=== PATIENT | female | born 1995 | race Caucasian/White ===

== ENCOUNTER → 2019-04-06 09:46 | Outpatient (BNVA) | payer MEDICAID, SELFPAY | PROVIDERS: Family Provider Nurse Practitioner Family; PCP Nurse Practitioner Family; Visit Provider Nurse Practitioner Family | DX: K52.9 Noninfective gastroenteritis and colitis, unspecified (principal); K92.1 Melena | CPT/HCPCS: 81003 ==

== ENCOUNTER → 2019-04-28 14:35 | Outpatient (BNVA) | payer MEDICAID, SELFPAY | PROVIDERS: Family Provider Nurse Practitioner Family; PCP Nurse Practitioner Family; Visit Provider Obstetrics & Gynecology | DX: N91.2 Amenorrhea, unspecified (principal) | CPT/HCPCS: 82670; 83001 ==

== ENCOUNTER 2019-08-08 09:13 | Outpatient (CLI) | payer MEDICAID, SELFPAY ==
--- NOTE | 2019-08-08 09:33 | MR_ITS ---
WS: [id number] MRI HEAD WITHOUT CONTRAST TECHNIQUE: Sagittal T1, T2 axial, T2 axial FLAIR, axial and coronal T1 images, axial susceptibility w eighted imaging, axial diffusion weighted images, and coronal T2 images were obtained. CLINICAL INFORMATION: CHRONIC HEADACHES COMPARISON: None. FINDINGS: No evidence of restricted diffusion to suggest acute ischemia. Ventricular system and basal cisterns are patent. Moderate patchy supratentorial white matter changes nonspecific in a patient this age but can be seen with hypertension, diabetes, migraine headaches, collagen vascular disease, and less lik clarisa demyelinating disease. Corpus callosum appears normal. No significant corpus callosal atrophy. Normal posterior fossa. Normal vascular flow voids at the skull base. No extra axial fluid collection s. No evidence of mass or mass effect. Paranasal sinuses and mastoid air cells well aerated. Normal o ptic chiasm and pituitary infundibulum. Temporal lobes and hippocampal formations are normal in appea gavi. No hemosiderin on susceptibly weighted images. MR/MR head wo con* [id number] IMPRESSION: 1. No evidence of restricted diffusion to suggest acute ischemia. 2. Moderate patchy supratentorial white matter changes nonspecific in a patien t this age but can be seen with hypertension, diabetes, migraine headaches, col lagen vascular disease, and less likely demyelinating disease. No significant p arenchymal volume loss. No infratentorial lesions. 3. Corpus callosum appears normal. No significant corpus callosal atrophy. 4. Paranasal sinuses and mastoid air cells well aerated. 5. No hemosiderin on the susceptibly weighted images.
== END 2019-08-08 09:14 | disposition home or self-care (01) ==
PROVIDERS: Family Provider Nurse Practitioner Family; PCP Nurse Practitioner Family; Visit Provider Psychiatry & Neurology Neurology
DX: G43.709 Chronic migraine without aura, not intractable, without status migrainosus (principal)
CPT/HCPCS: 70551

== ENCOUNTER → 2019-08-30 16:06 | Outpatient (BNVA) | payer MEDICAID, SELFPAY | PROVIDERS: Family Provider Nurse Practitioner Family; PCP Nurse Practitioner Family; Visit Provider Nurse Practitioner Family | DX: R53.83 Other fatigue (principal); N64.4 Mastodynia | CPT/HCPCS: 85025 ==

== ENCOUNTER → 2019-09-18 13:35 | Outpatient (BNVA) | payer MEDICAID, SELFPAY | PROVIDERS: Family Provider Nurse Practitioner Family; PCP Nurse Practitioner Family; Visit Provider Obstetrics & Gynecology | DX: E28.2 Polycystic ovarian syndrome (principal) | CPT/HCPCS: 80048 ==

== ENCOUNTER 2019-09-25 09:12 | Outpatient (CLI) | payer MEDICAID, SELFPAY ==
[2019-09-25 09:54] VITALS: BMI 24.1
--- NOTE | 2019-09-25 09:59 | ECG_ITS ---
[facility] Test Date: 2019-09-25 Pat Name: Gutierrez Rocha Department: Room: Gender: Female Signaler: : 1995 Requested By: Inez Mejia Order Number: [id number] Beaulieu MD: Inez Mejia M.D. Interpretive Statements NAME OF STUDY: TREADMILL STRESS TEST INDICATION: Chest Pain; Shortness of Breath Baseline blood pressure of 133/99 mm Hg, heart rate 89 beats per minute and oxygen saturation 98%. EKG showed normal sinus rhythm, normal axis with normal ST-Ts. The patient exercised for 10 minutes 6 seconds on a standard Raad protocol. Patient attained a maximum heart rate of 188 beats per minute(95 % of the maximum predicted heart rate) with a blood pressure at the peak exercise of 164/104 mm Hg and oxygen saturation 95%. The EKG at the peak exercise revealed sinus tachycardia with no significant ST-T wave changes. Patient did not have any significant arrhythmis with the exercise. Patient developed chest pressure during stage III of exercise along with intraprocedural shortness of breath that resolved by discharge. Study was terminated due to fatigue and exertional shortness of breath. During the recovery phase, there were no new changes. Blood pressure at the end of the recovery phase was 96/74 mm Hg with a heart rate of 102 beats per minute and oxygen saturation 98%. CONCLUSION: 1. Normal EKG response to treadmill exercise. 2. No exercise-induced chest pain or cardiac arrhythmia 3. Excellent exercise tolerance, attained a maximum of 13.5 METs. Maximum VO2 of 47.3 mL/kg/min. 4. Nathan treadmill score of 6 suggestive of low risk for cardiovascular events. 5. Baseline normal blood pressure with normal response to exercise. Electronically Signed On 09-25-2019 12:45:08 CDT by Inez Mejia M.D. [id number]
[2019-09-25 10:29] VITALS: BP 131/78; PULSE 99
== END 2019-09-25 09:13 | disposition home or self-care (01) ==
LOC: CDL 09:12
PROVIDERS: PCP Nurse Practitioner Family; Visit Provider Internal Medicine Cardiovascular Disease
DX: R06.02 Shortness of breath (principal)
CPT/HCPCS: 93017

== ENCOUNTER 2019-10-18 10:55 | Outpatient (CLI) | payer MEDICAID, SELFPAY ==
--- NOTE | 2019-10-18 11:00 | US_ITS ---
WS: [id number] ULTRASOUND LEFT BREAST HISTORY: left breast pain COMPARISON: None available. TECHNIQUE: 2-D and Doppler. At 4:00 at the areola margin is a hypoechoic well-circumscribed mass measuring 9 x 6 x 8 mm. No sign ificant increased vascularity. This is most consistent with a fibroadenoma. Solid mass at 4:00 is most consistent with benign fibroadenoma. Ultrasound-guided biopsy can confirm this if clinically thought necessary. US/US breast LT complete [id number] IMPRESSION: BI-RADS: 2-Benign FOLLOW-UP: See Report
== END 2019-10-18 10:56 | disposition home or self-care (01) ==
LOC: RAD 11:00
PROVIDERS: PCP Nurse Practitioner Family; Visit Provider Nurse Practitioner Family
DX: N64.4 Mastodynia (principal); N63.23 Unspecified lump in the left breast, lower outer quadrant
CPT/HCPCS: 76641

== ENCOUNTER 2019-11-02 11:56 | Outpatient (CLI) | payer MEDICAID, SELFPAY ==
--- NOTE | 2019-11-02 13:00 | US_ITS ---
WS: [id number] ULTRASOUND-GUIDED LEFT BREAST BIOPSY HISTORY: LEFT breast mass. COMPARISON: 10/18/2019 Procedure, risks and complications are explained to the patient. Medications are reviewed. Consent is obtained. The mass in the LEFT breast at 4:00 is localized with ultrasound. Skin is cleansed with ChloraPrep an d anesthetized with 1% buffered lidocaine. Small dermatome is made. Under sterile conditions mass is biopsied with a 14-gauge Achieve needle. Multiple core biopsies are performed. Material placed in for caron and sent to pathology for review. No complications encountered. Breast tissue marker (Bard ultrasound enhanced ribbon): Single. Patient left the radiology suite with no complications. Patient is instructed to return [place] [facility] any concerns. 1. Uncomplicated core needle biopsy LEFT breast mass at 4:00. US/[place] [id number] IMPRESSION: PATHOLOGY: Fat necrosis with histiocytes and chronic inflammation. No malignanc y. RECOMMENDATION: See report No additional follow-up recommended.
== END 2019-11-02 11:57 | disposition home or self-care (01) ==
PROVIDERS: PCP Nurse Practitioner Family; Visit Provider Surgery
DX: N63.23 Unspecified lump in the left breast, lower outer quadrant (principal); N64.1 Fat necrosis of breast
CPT/HCPCS: 19083; 88305

== ENCOUNTER 2019-12-25 14:42 | Emergency (ER) | payer MEDICAID, SELFPAY ==
[2019-12-25 14:49] VITALS: BP 126/84; PULSE 110; RESP 18; TEMP 36.5; O2SAT 100; BMI 23.8
--- NOTE | 2019-12-25 17:06 | ED_ITS ---
HPI - Wound/Laceration General: Chief Complaint: Wound/Laceration Stated Complaint: POSSIBLE CYST ON TAILBONE Time Seen by Provider: 12/25/19 15:03 History of Present Illness: HPI narrative: 24-year-old female with a history of pilonidal cyst returns with a swollen inflamed area at the superior aspect of the gluteal cleft overlying the sacrum. It is tender to touch it has not been draining. She has had it drained in the past but has never had a completely surgically excised. Onset (ago): day(s) Location: other (Gluteal cleft) Associated symptoms: Reports pain; Denies chills, fever(s), foreign body sensation, inability to move, nausea, numbness, syncope or vomiting Review of Systems Const: Denies: fever(s) or chills ENMT: Denies: throat pain, ear or mastoid pain, nasal discharge or nasal congestion Card: Denies: syncope Resp: Denies: dyspnea, productive cough or non-productive cough GI: Denies: nausea or vomiting : Denies: flank pain, difficulty voiding, dysuria, urinary frequency or urinary urgency Skin/Breast: Denies: rash or pruritus PFSH ED PFSH: Medical History Colitis Fibroadenoma of breast Seizure-like activity Surgical History History of cholecystectomy (09/23/16) Dr. Tran at [facility] Family History Father Diabetes Grandmother Diabetes maternal Hypertension maternal Stroke maternal great Grandfather Diabetes paternal Hypertension maternal Sister Diabetes Hypertension Mother Hypertension Hypercholesteremia Stroke Thyroid disease Bleeding disorder Family/Other Thyroid disease maternal aunt, maternal uncle Denies family history of Anesthesia complication Social History Smoking and tobacco status: never smoked Second hand smoke exposure: No Alcohol intake: never Substance/Drug Use: never Other details last substance use: Denies drug use. Housing: House Current occupational status: unemployed Female Reproductive History: Date of last menstrual period: 03/22/19 Para: 0 Spontaneous abortions: No Physical Exam Const: COMMON NORMALS: no acute distress GENERAL APPEARANCE: cooperative and comfortable ORIENTATION/CONSCIOUSNESS: Yes awake, Yes oriented to person, Yes oriented to place and Yes oriented to time HENMT: COMMON NORMALS: normocephalic, atraumatic and hearing grossly normal bilaterally HEAD & SCALP: normocephalic and atraumatic Eye: COMMON NORMALS: Equal, round and reactive pupils present, EOMs intact bilaterally, conjunctivae normal and no scleral icterus CONJUNCTIVA: Yes conjunctivae normal PUPIL: Yes Equal, round and reactive pupils present Neck/C-Spine: COMMON NORMALS: full ROM, no lymphadenopathy, supple and no JVD Lymph: LYMPHATIC: no lymphadenopathy noted and no lymphedema noted Resp: COMMON NORMALS: normal respiratory effort, No retractions, No use of accessory muscles and clear to auscultation bilaterally AUSCULTATION: clear to auscultation bilaterally Cardio: COMMON NORMALS: no JVD, regular rate, regular rhythm and No murmurs present (Cardio) RATE: regular rate RHYTHM: regular rhythm GI: COMMON NORMALS: Soft to palpation and No hepatosplenomegaly present AUSCULTATION: Yes normoactive bowel sounds PALPATION: Yes Soft to palpation, No Tenderness to palpation present (GI), No Guarding due to palpation present (GI) and Yes No hepatosplenomegaly present Extremity: COMMON NORMALS: normal to inspection, capillary refill normal, no clubbing, cyanosis or edema, no calf tenderness and no pedal edema Neuro: SENSORIUM/ORIENTATION: Yes oriented to person, Yes oriented to place and Yes oriented to time Skin: COMMON NORMALS: no rashes or lesions noted NARRATIVE SKIN EXAM: Fluctuant pilonidal cyst with scarring overlying no evidence of drainage there appears to be one area of pointing. GENERAL SKIN EXAM: no rashes or lesions noted Procedures Abscess I/D Site: other (Pilonidal cyst) Local Anesthetic: lidocaine 1% and with epi Amount of anesthesia used (mL): 3 Technique: incised with #11 blade Irrigation: No Packing used?: iodoform Course Vital Signs: Vital signs: Vital Signs Temperature 97.7 F 12/25/19 14:49 Pulse Rate 70 12/25/19 17:44 Respiratory Rate 15 12/25/19 17:44 Blood Pressure 130/80 12/25/19 17:44 Pulse Oximetry 98 12/25/19 17:44 MDM - Wound/Laceration MDM Narrative: Medical decision making narrative: Incision and it is done express large amount of very foul-smelling purulent materialIncision and drainage wound packed. Will start on antibiotics 3 change wound packing tomorrow return if his problems will make referral for surgery for definitive care Discharge Plan Discharge Patient Disposition: Home Clinical Impression: Infected pilonidal cyst Condition: Stable Prescriptions: New hydrocodone-acetaminophen 5-325 mg tablet 1 tab PO Q6H PRN (Reason: pain) Qty: 20 RF: 0 Augmentin 875-125 mg tablet 1 tab PO BID Qty: 20 RF: 0 No Action Lupron Depot 3.75 mg syringe kit 3.75 mg IM .Monthly Qty: 1 RF: 5 mupirocin 2 % ointment 1 applic TOPICAL BID Qty: 22 RF: 0 norethindrone ac-eth estradiol [Microgestin ()] 1.5-30 mg-mcg tablet 1 tab PO DAILY 21 Days Qty: 21 RF: 12 spironolactone 100 mg tablet 100 mg PO DAILY Qty: 30 RF: 2 Vitamin B-12 1,000 mcg Tablet 1,000 mcg PO DAILY RF: 0 uefxtiawda-oqesknjpxkbfl-bjyt 50-325-40 mg tablet 2 tab PO Q4H PRN (Reason: Headache) RF: 0 gabapentin 100 mg capsule 100 mg PO TID RF: 0 dicyclomine 10 mg capsule 10 mg PO QID PRN (Reason: Cramps) RF: 0 metoprolol tartrate 25 mg tablet 25 mg PO BID RF: 0 Adult Multivitamin Gummies 200 mcg Tablet,Chewable 400 mcg PO DAILY RF: 0 Discharge Orders: Discharge Order (Routine); Ordered 12/25/19 Ordered By: Juan Centeno Referrals: Nina Garcia FNP-C [Primary Care Provider] - Activity Restrictions/Additional Instructions: Follow-up with your primary care doctor tomorrow to have the packing changed. Case management will call to get you set up with the surgeon to have this definitively removed Discharge Date/Time: 12/25/19 17:45 Coding Level of Care Code ED Prize Coordinator for Floresg Fwd Exam Comprehensive
[2019-12-25 17:44] VITALS: BP 130/80; PULSE 70; RESP 15; O2SAT 98
--- NOTE | 2019-12-26 14:52 | DCPLANNER ---
retail manager in training had message to schedule a follow up appointment for patient with general surgery. retail manager in training called [facility], spoke with Lenore, onsite case manager gave clinic patients information. retail manager in training was told that patients information would be printed and reviewed. Clinic will call patient with appointment information.
--- NOTE | 2020-01-02 12:17 | DCPLANNER ---
Patient has a follow up appointment scheduled for Sunday, January 19, [address] at 11:[address] Tran. Clinic will call patient with appointment information.
== END 2019-12-25 17:45 | disposition home or self-care (01) ==
PROVIDERS: Emergency Provider Family Medicine; PCP Nurse Practitioner Family
DX: L05.01 Pilonidal cyst with abscess (principal); Z85.3 Personal history of malignant neoplasm of breast
CPT/HCPCS: 10080; 12345; 87070; 87205; 99282

== ENCOUNTER → 2020-04-06 13:22 | Outpatient (BNVA) | payer MEDICAID, SELFPAY | PROVIDERS: PCP Nurse Practitioner Family; Visit Provider Nurse Practitioner Family | DX: R53.83 Other fatigue (principal); R68.89 Other general symptoms and signs | CPT/HCPCS: 87400 ==

== ENCOUNTER → 2020-05-30 10:25 | Outpatient (BNVA) | payer MEDICAID, SELFPAY | PROVIDERS: PCP Nurse Practitioner Family; Visit Provider Obstetrics & Gynecology | DX: R10.2 Pelvic and perineal pain (principal) | CPT/HCPCS: 81025 ==

== ENCOUNTER → 2020-06-14 11:20 | Outpatient (BNVA) | payer MEDICAID, SELFPAY | PROVIDERS: PCP Nurse Practitioner Family; Visit Provider Obstetrics & Gynecology | DX: Z12.4 Encounter for screening for malignant neoplasm of cervix (principal); N89.8 Other specified noninflammatory disorders of vagina | CPT/HCPCS: 87491; 87591; 88175 ==

== ENCOUNTER → 2020-07-08 09:53 | Outpatient (BNVA) | payer MEDICAID, SELFPAY | PROVIDERS: PCP Nurse Practitioner Family; Visit Provider Nurse Practitioner Family | DX: M79.604 Pain in right leg (principal); M79.605 Pain in left leg; R31.0 Gross hematuria | CPT/HCPCS: 80053; 81000; 82306; 82607; 84443; 85025; 85651; 86140; 86431 ==

== ENCOUNTER → 2020-07-10 11:15 | Outpatient (BNVA) | payer MEDICAID, SELFPAY | PROVIDERS: PCP Nurse Practitioner Family; Visit Provider Nurse Practitioner Family | DX: E03.9 Hypothyroidism, unspecified (principal); E55.9 Vitamin D deficiency, unspecified | CPT/HCPCS: 84439; 84481 ==

== ENCOUNTER → 2020-07-16 12:09 | Outpatient (BNVA) | payer MEDICAID, SELFPAY | PROVIDERS: PCP Nurse Practitioner Family; Visit Provider Obstetrics & Gynecology | DX: E28.2 Polycystic ovarian syndrome (principal) | CPT/HCPCS: 81025 ==

== ENCOUNTER 2020-08-08 08:35 | Outpatient (CLI) | payer MEDICAID, SELFPAY ==
--- NOTE | 2020-08-08 08:45 | US_ITS ---
WS: [id number] THYROID ULTRASOUND HISTORY: E03.9 - Hypothyroidism, unspecified COMPARISON: None available. Right lobe: 1.8 cm x 1.6 cm x 5.1 cm (w x ap x l). Volume: 7.5 cm3. Slightly prominent thyroid gland. Coarsened echotexture with no discrete nodules. There is mild incre ased vascularity. Left lobe: 1.9 cm x 1.6 cm x 4.7 cm (w x ap x l). Volume: 7.6 cm3. Mildly enlarged gland with coarse echotexture. No nodules. Increased vascularity. Isthmus: 0.3 cm. US/US thyroid [id number] IMPRESSION: 1. No focal thyroid nodules. 2. Consider mild Graves' disease as a possible etiology based upon the mild in creased vascularity.
== END 2020-08-08 08:36 | disposition home or self-care (01) ==
LOC: RAD 08:40
PROVIDERS: PCP Nurse Practitioner Family; Visit Provider Nurse Practitioner Family
DX: E03.9 Hypothyroidism, unspecified (principal)
CPT/HCPCS: 76536

== ENCOUNTER → 2020-08-20 11:40 | Outpatient (BNVA) | payer MEDICAID, SELFPAY | PROVIDERS: PCP Nurse Practitioner Family; Visit Provider Nurse Practitioner Family | DX: E03.9 Hypothyroidism, unspecified (principal) | CPT/HCPCS: 84439; 84481 ==

== ENCOUNTER 2020-09-03 07:40 | Outpatient (CLI) | payer MEDICAID, SELFPAY ==
--- NOTE | 2020-09-03 08:00 | US_ITS ---
WS: [id number] ULTRASOUND BREAST RIGHT TECHNIQUE: Ultrasound right breast focused area of concern. CLINICAL INFORMATION: N63.15 - Unspecified lump in the right breast, overlappin... COMPARISON: None. FINDINGS: Ultrasound right breast at the 3:00 position 1 cm from the nipple in the area of patient concern. Den se underlying breast parenchyma. No cystic or solid lesions. No lesions to target for biopsy. Finding s are benign. US/US breast RT limited* [id number] IMPRESSION: No suspicious findings. BI-RADS 2 benign Recommend annual screening mammography age 40.
== END 2020-09-03 07:41 | disposition home or self-care (01) ==
LOC: RAD 07:41
PROVIDERS: PCP Nurse Practitioner Family; Visit Provider Nurse Practitioner Family
DX: N63.15 Unspecified lump in the right breast, overlapping quadrants (principal)
CPT/HCPCS: 76642

== ENCOUNTER → 2020-09-05 12:54 | Outpatient (BNVA) | payer MEDICAID, SELFPAY | PROVIDERS: PCP Nurse Practitioner Family; Visit Provider Surgery | DX: L05.01 Pilonidal cyst with abscess (principal); Z20.822 Contact with and (suspected) exposure to COVID-19 | CPT/HCPCS: 87635 ==

== ENCOUNTER → 2020-09-19 12:16 | Outpatient (BNVA) | payer MEDICAID, SELFPAY | PROVIDERS: PCP Nurse Practitioner Family; Visit Provider Surgery | DX: L05.01 Pilonidal cyst with abscess (principal); Z20.822 Contact with and (suspected) exposure to COVID-19 | CPT/HCPCS: 87635 ==

== ENCOUNTER 2020-09-25 11:34 | Day surgery (SDC) | payer MEDICAID, SELFPAY ==
[2020-09-24 14:07] VITALS: BMI 26.2
[2020-09-25] VITALS (8 sets, daily range): BP systolic 114–125; BP diastolic 80–94; PULSE 64–78; RESP 14–20; TEMP 36.2–36.7; O2SAT 96–99
--- NOTE | 2020-09-25 11:42 | P.HP_ITS ---
Same Day Surgery H&P Indication for Procedure/HPI DATE OF PROCEDURE: September 25, 2020 CHIEF COMPLAINT/INDICATIONFOR SURGICAL PROCEDURE: pilonidal cystectomy PREOP DIAGNOSIS: pilonidal abscess PLANNED PROCEDRUE: Operation Date: 09/25/20 14:30 Proposed Procedures p Pilonidal Cystectomy 06862 L05.01(Bilateral) - Naga Tran MD Medications/Allergies* Home Medications Medication Instructions Recorded Confirmed Type lmgfeozrgf-ggmljugontnhg-sbyx 2 tab PO Q4H PRN 12/25/19 09/24/20 History cyanocobalamin (vitamin B-12) 1,000 mcg PO DAILY 12/25/19 09/24/20 History [Vitamin B-12] dicyclomine 10 mg PO QID PRN 12/25/19 09/24/20 History gabapentin 100 mg PO TID 12/25/19 09/24/20 History multivit with min-folic acid 400 mcg PO DAILY 12/25/19 09/24/20 History [Adult Multivitamin Gummies] Allergies/Adverse Reactions Allergy/AdvReac Type Severity Reaction Status Date / Time No Known Allergies Allergy Verified 09/24/20 14:00 Pertinent History/Comorbid Conditions* Medical History (Updated 07/29/20 @ 10:08 by Naga Tran MD) Colitis Fibroadenoma of breast Seizure-like activity Surgical History (Updated 07/29/20 @ 10:08 by Naga Tran MD) History of cholecystectomy (09/23/16) Dr. Tran at [facility] History of colonoscopy 2020 Family History (Updated 10/24/19 @ 13:50 by Clarice Sanches LPN) Diabetes Father Grandmother maternal Grandfather paternal Sister Hypercholesteremia Mother Bleeding disorder Mother Hypertension Grandmother maternal Grandfather maternal Sister Mother Thyroid disease Mother Family/Other maternal aunt, maternal uncle Stroke Grandmother maternal great Mother Denies family history of Anesthesia complication Social History Smoking and tobacco status: never smoked Second hand smoke exposure: No Alcohol intake: never Lives independently: Yes Household members: family Housing: House Marital status: Single service: No Current occupational status: unemployed History of recent travel: No Current gender identity: Female Pertinent Exam Findings alert, oriented x 3 and regular rate & rhythm Recommendations Surgery/Procedure today Coding Level of Care Code Acute 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
[2020-09-25 11:53] LABS: OR HCG Qualitative Urine Negative (Negative)
[2020-09-25] MEDS: sodium chloride 0.9% 1,000 ML 30 ML IV (12:14)
--- NOTE | 2020-09-25 12:46 | ANES.PREANE2 ---
Pre-Anesthetic Assessment Pre-Anesthetic Assessment: Height/Weight: Height 1.7 m Weight 75.75 kg Temp Pulse Resp BP Pulse Ox 97.8 F 78 16 122/89 98 09/25/20 11:54 09/25/20 11:54 09/25/20 11:54 09/25/20 11:54 09/25/20 11:54 Preop Diagnosis: pilonidal abscess Proposed Procedure: Operation Date: 09/25/20 14:30 Proposed Procedures p Pilonidal Cystectomy 68258 L05.01(Bilateral) - Naga Tran MD Was Beta Sirisha taken within 24 hours: Yes Was Clonidine taken within 24 hours: N/A Last intake: Intake Last Liquid Date 09/25/20 Last Liquid Time 08:30 Last Solid Date 09/24/20 Last Solid Time 22:30 Social: Social History: No alcohol and No tobacco Exam: Pre-Anes Outpt Exam: alert, oriented x 3, clear to auscultation bilaterally and regular rate & rhythm Airway: Submandibular: WNL Cervical ROM: WNL MP: 2 Dentition: Full CV/HEM: CV/HEM: HTN Metabolic: Metabolic: Thyroid Anesthetic Plan: ASA status: 2 Anesthesia: General Risk of > 500 ml blood loss (7ml/kg in children): No Meds/Allergies Current Medications: Current Medications Generic Name Dose Route Start Last Admin Trade Name Freq PRN Reason Stop Dose Admin Sodium Chloride 1,000 mls @ 30 ml s/hr 09/25/20 11:45 09/25/20 12:14 Sodium Chloride 0.9% IV 09/26/20 11:44 30 mls/hr .Q24H CARROLL Administration PFSH Anesthesia PFSH: Medical History Colitis Fibroadenoma of breast Seizure-like activity Surgical History History of cholecystectomy (09/23/16) Dr. Tran at [facility] History of colonoscopy 2020 Family History Father Diabetes Grandmother Diabetes maternal Hypertension maternal Stroke maternal great Grandfather Diabetes paternal Hypertension maternal Sister Diabetes Hypertension Mother Hypertension Hypercholesteremia Stroke Thyroid disease Bleeding disorder Family/Other Thyroid disease maternal aunt, maternal uncle Denies family history of Anesthesia complication Social History Smoking and tobacco status: never smoked Second hand smoke exposure: No Alcohol intake: never Lives independently: Yes Household members: family Housing: House Marital status: Single service: No Current occupational status: unemployed History of recent travel: No Current gender identity: Female Female Reproductive History: Date of last menstrual period: 09/25/19 Para: 0 Spontaneous abortions: No Data Anesthesia Other Labs: Laboratory Results - last 48 hr 09/25/20 11:37 Urine HCG, Qual Negative Cardiac Studies: No Data to Display
[2020-09-25] MEDS: neomycin-poly-bacitracin oint 28 gm 1 APPLIC TOPICAL (13:35)
--- NOTE | 2020-09-25 15:08 | P.OP_ITS ---
Operative Report Date of procedure: September 25, 2020 Pre-op Diagnosis: pilonidal abscess with sinuses Post-op Diagnosis: Multiple pilonidal sinuses Procedure Done: Pilonidal cystectomy Intermediate closure of wound measuring 6 x 2 cm Specimens removed/disposition: Skin subcutaneous tissue containing pilonidal sinuses Surgeon: Naga Tran Anesthesia: MAC Condition: stable Disposition: PACU Procedure: The patient was taken to the operating room and intubated under general anesthesia after IV antibiotic had been administered and she was placed in a prone position. The gluteal cleft was prepped and draped in a sterile m tamie. Using a lacrimal probe the multiple pilonidal sinuses were probed to identify the extent of the disease. Using a 15 blade an elliptical 6 x 2 cm incision was made, subcutaneous tissues divided using electrocautery down to the fascia incorporating all the sinus tracts as well as microabscesses. The specimen was sent to pathology. The wound was irrigated with saline, hemostasis ensured and subcutaneous flaps were raised bilaterally using electrocautery. The subcutaneous tissues were approximated with underlying fascia using interrupted 3-0 Vicryl sutures. The defect was closed in layers using interrupted 3-0 Vicryl sutures. The skin was closed using vertical mattress 2-0 Prolene suture. Antibiotic cream and sterile dressings were used to cover the incision. The patient was extubated and transferred to recovery room in stable condition.
--- NOTE | 2020-09-25 15:58 | ANE.PACU2 ---
Inpatient post-anesthesia follow up: Airway intact: Yes Vital signs: Temperature 98.1 F Pulse Rate 70 Respiratory Rate 14 Blood Pressure 114/80 Pulse Oximetry 98 Oxygen Delivery Me thod Room Air Oxygen Flow Rate Fraction of Inspir ed Oxygen Hydration adequate: Yes Nausea and vomiting: No Pain level: 1 Mental status: Baseline
== END 2020-09-25 15:40 | disposition home or self-care (01) ==
PROVIDERS: Anesthesiology; PCP Nurse Practitioner Family; Visit Provider Surgery
PROC: (CPT 11772; principal; 2020-09-25 14:30)
DX: L05.01 Pilonidal cyst with abscess (principal); I10 Essential (primary) hypertension; Z82.49 Family history of ischemic heart disease and other diseases of the circulatory system; Z83.3 Family history of diabetes mellitus
CPT/HCPCS: 11772; 81025; 84703; 88304; 96365; J0690; J1100; J1885; J2405; J2704; J2710; J3010; J3490; J7030

== ENCOUNTER 2020-10-14 14:29 | Observation (INO) | payer MEDICAID, SELFPAY ==
[2020-10-14 14:33] VITALS: BP 118/83; PULSE 106; RESP 18; TEMP 37.1; O2SAT 104; BMI 26.4
[2020-10-14 19:59] LABS: Basophils % 0.7 %; Eosinophils # 0.1 10^3/uL (0.0-0.8); Eosinophils % 1.6 %; Hematocrit 40.8 % (37.0-47.0); Hemoglobin 13.2 g/dL (11.5-15.3); Lymphocytes # 2.2 10^3/uL (0.8-4.8); Lymphocytes % 36.5 %; Mean Corpuscular HGB Conc 32.4 g/dL (30.0-36.0); Mean Corpuscular Hemoglobin 28.9 pg (28.0-34.0); Mean Corpuscular Volume 89.5 fL (81-99); Mean Platelet Volume 8.8 fL (7.4-10.4); Monocytes # 0.7 10^3/uL (0.2-0.9); Monocytes % 10.9 %; Neutrophils # 3.04 10^3/uL (1.8-7.7); Nucleated Red Blood Cells % 0 %; Platelet Count 306 10^3/cmm (130-400); Red Blood Count 4.56 10^6/uL (4.1-5.3); Red Cell Distribution Width 11.9 % (12.1-15.1); White Blood Count 6.1 10^3/uL (4.0-10.0)
[2020-10-14 20:13] LABS: Alanine Aminotransferase 22 U/L (0-33); Albumin Level 4.2 g/dL (3.5-5.2); Alkaline Phosphatase 101 IU/L (35-105); Aspartate Amino Transferase 24 U/L (0-32); Blood Urea Nitrogen 11 mg/dL (6-20); Calcium 9.3 mg/dL (8.5-10.5); Carbon Dioxide 24 mmol/L (22-29); Chloride 101 mmol/L (98-107); Globulin 3.6 g/dL (1.3-4.6); Glomerular Filtration Rate 121.8 mL/min (90-130); Glucose 86 mg/dL (65-115); Lipase 17 U/L (13-60); Osmolality Calculated 289 mOsm/kg (285-295); Sodium 140 mmol/L (136-145); Total Bilirubin 0.5 mg/dL (0.15-1.2); Total Protein 7.8 g/dL (6.6-8.7)
[2020-10-14 21:20] VITALS: BP 134/94; PULSE 112; O2SAT 99
--- NOTE | 2020-10-14 21:20 | ED_ITS ---
HPI - Nausea/Vomiting/Diarrhea General: Chief complaint: Nausea/Vomiting/Diarrhea Stated complaint: N/V, Fatigue, fever, surgery on tail bone the 30th Time Seen by Provider: 10/14/20 21:16 History of Present Illness: HPI Narrative: This patient is a 24-year-old female who presents to the emergency department with complaint of fever nausea vomiting and discharge from her surgical site. On September 25 that she had a surgical incision of a colloidal cyst at the anal cleft. And sacral area. By Dr. Tran. Patient states that she was placed on oral antibiotics but not improving. Comes in with purulent drainage. Will do medical evaluation treat as needed Associated nausea: No Associated symtoms: Denies anxiety, change in vision, chest pain, dysuria, fatigue, headache(s), nausea or palpitations Review of Systems General: Reports: 10 or more systems reviewed and unremarkable except in HPI and below Const: Denies: fever(s), chills, body aches or fatigue Eyes: Denies: change in vision or blurry vision ENMT: Denies: throat pain, hoarseness or mouth pain Card: Denies: chest pain, palpitations, irregular heart rhythm, edema, swelling of feet/ankles or lightheadedness Resp: Denies: dyspnea, productive cough, non-productive cough, wheezing or pain on inspiration GI: Denies: abdominal pain, nausea or vomiting : Denies: flank pain, difficulty voiding, dysuria, urinary frequency, ur inary urgency or urinary hesitancy Musc: Denies: neck pain, back pain, extremity pain, extremity swelling, joint pain, joint swelling, joint redness, joint warmth or limited range of motion Skin/Breast: Reports: erythema, changes in skin color and surgical incision; Denies: rash, pruritus or skin tenderness Neuro: Denies: headache(s), numbness in extremities or weakness in extremities Psych: Denies: anxiety or depression PFSH ED PFSH: Medical History Bowel dysfunction Teenage years--longstanding history of bowel related abnormalities and 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 Chronic migraine Longstanding history of chronic migraines and is on medication Hypothyroidism Diagnosed in 2020--managed by her primary care provider. No pertinent past medical history Denies diabetes, asthma, hypertension, DVT/PE Palpitations Diagnosed in 2020 and is on medication managed by her primary care provider. 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 Jensen Surgical History History of cholecystectomy (09/23/16) 09/23/2016--laparoscopic by Dr. Tran at [facility] History of colonoscopy 2019-for IBS-like symptoms History of excision of pilonidal cyst (09/25/20) 09/25/2020-Dr. Tran at [facility] Family History Father Diabetes Grandmother Diabetes maternal Hypertension maternal Grandfather Diabetes paternal Hypertension maternal Sister Diabetes Hypertension Mother Hypertension Hypercholesteremia Thyroid disease Bleeding disorder Denies family history of Colon cancer Ovarian cancer Breast cancer Anesthesia complication Uterine cancer Stroke Social History Smoking and tobacco status: never smoked Second hand smoke exposure: No Alcohol intake: never Lives independently: Yes Household members: family Housing: House Marital status: Single service: No Current occupational status: unemployed History of recent travel: No Current gender identity: Female Female Reproductive History: Date of last menstrual period: 09/25/19 Para: 0 Spontaneous abortions: No Physical Exam Const: COMMON NORMALS: no acute distress, average body habitus, patient oriented x3, no limitations, healthy appearing, alert and well nourished HENMT: COMMON NORMALS: normocephalic, atraumatic, hearing grossly normal bilaterally, external ears normal, EAC's normal, TM's normal bilaterally, Normal external nose present, Normal nasal mucous membranes and turbinates present, mo ist oral mucous membranes, oropharynx normal, dentition normal and gingiva normal HEAD & SCALP: normocephalic and atraumatic NOSE: Normal external nose present and Normal nasal mucous membranes and turbinates present EXTERNAL EAR: Yes external ears normal EXTERNAL AUDITORY CANAL: EAC's normal TYMPANIC MEMBRANE: TM's normal bilaterally Neck/C-Spine: COMMON NORMALS: full ROM, no lymphadenopathy, supple, no meningeal signs, no JVD, Thyroid normal and No carotid bruits THYROID: Thyroid normal Chest: COMMONS NORMALS: normal inspection of the chest, normal palpation of entire chest wall, normal inspection of the breasts and normal palpation of the breasts Breast/axilla inspection: Yes normal inspection of the breasts BREAST/AXILLA PALPATION: Yes normal palpation of the breasts Resp: COMMON NORMALS: normal respiratory effort, No retractions, No use of accessory muscles, clear to auscultation bilaterally and percussion normal AUSCULTATION: clear to auscultation bilaterally PERCUSSION: percussion normal Cardio: COMMON NORMALS: no JVD, regular rate, regular rhythm, S1 normal heart sound present, S2 normal heart sound present, No gallops present (Cardio), No clicks present (Cardio), No murmurs present (Cardio), No rub (Cardio) and Pe ripheral pulses 2+ throughout RATE: regular rate RHYTHM: regular rhythm HEART SOUNDS: S1 normal heart sound present and S2 normal heart sound present PERIPHERAL PULSES: Peripheral pulses 2+ throughout GI: COMMON NORMALS: Normal to inspection, nondistended, normoactive bowel sounds present, Soft to palpation, non-tender, No hepatosplenomegaly present, no masses and no bruits PALPATION: Yes Soft to palpation and Yes No hepatosplenomegaly present Back/Pelvis: COMMON NORMALS: thoracic and lumbar spine normal to inspection, no thoracic nor lumbar tenderness, thoraco-lumbar ROM normal and straight leg raise negative bilaterally Extremity: COMMON NORMALS: normal to inspection, full ROM, capillary refill normal, no joint enlargement, no clubbing, cyanosis or edema, no calf tenderness and no pedal edema Neuro: COMMON NORMALS: patient oriented x3 SENSORIUM/ORIENTATION: Yes alert MENINGEAL SIGNS: Yes no meningeal signs Skin: SKIN IMAGES (FEMALE): 1. Surgical wound appears to be infected and draining purulent material surrounding erythema Course Reevaluation(s): Reevaluation #1: I did discuss at length with patient about suggestions of staying in the hospital to have a surgical exploration of the area and rewashout in the OR. She is in agreement. Time: 00:31 Consultations: Consultation #1: I did discuss leg with Dr. Sanchez who agrees the patient is to be admitted to the hospital. He will see patient write additional orders. Time: 00:31 Vital Signs: Vital signs: Vital Signs Temperature 99.0 F 10/14/20 22:00 Pulse Rate 112 H 10/14/20 22:00 Respiratory Rate 18 10/14/20 22:00 Blood Pressure 110/70 10/14/20 22:00 Pulse Oximetry 99 10/14/20 22:00 MDM - Nausea/Vomiting/Diarrhea MDM Narrative: Medical decision making narrative: This patient is a 24-year-old female who presents to the emergency department with complaint of fever nausea vomiting and discharge from her surgical site. On September 25 that she had a surgical incision of a colloidal cyst at the anal cleft. And sacral area. By Dr. Tran. Patient states that she was placed on oral antibiotics but not improving. Comes in with purulent drainage. I did discuss at length with patient about suggestions of staying in the hospital to have a surgical exploration of the area and rewashout in the OR. She is in agreement...I did discuss leg with Dr. Sanchez who agrees the patient is to be admitted to the hospital. He will see patient write additional orders. Medical Records: Attestation: I reviewed the patient's medical records. Lab Data: Attestation: I reviewed the patient's lab results. Labs: Lab Results 10/14/20 10/14/20 10/14/20 Range/Units 19:20 19:20 21:52 WBC 6.1 (4.0-10.0) 10^3/ uL RBC 4.56 (4.1-5.3) 10^6/u L Hgb 13.2 (11.5-15.3) g/dL Hct 40.8 (37.0-47.0) % MCV 89.5 (81-99) fL MCH 28.9 (28.0-34.0) pg MCHC 32.4 (30.0-36.0) g/dL RDW 11.9 L (12.1-15.1) % Plt Count 306 (130-400) 10^3/c mm MPV 8.8 (7.4-10.4) fL Neut % (Auto) 50.0 % Lymph % (Auto) 36.5 % Harmon % (Auto) 10.9 % Eos % (Auto) 1.6 % Baso % (Auto) 0.7 % Neut # (Auto) 3.04 (1.8-7.7) 10^3/u L Lymph # (Auto) 2.2 (0.8-4.8) 10^3/u L Harmon # (Auto) 0.7 (0.2-0.9) 10^3/u L Eos # (Auto) 0.1 (0.0-0.8) 10^3/u L Baso # (Auto) 0.0 (0.0-0.1) 10^3/u L Nucleated RBC % (a uto) 0 % Nucleated RBCs # 0.0 /100WBC Sodium 140 (136-145) mmol/L Potassium 4.0 (3.5-5.1) mmol/L Chloride 101 (98-107) mmol/L Carbon Dioxide 24 (22-29) mmol/L Anion Gap 19.0 (5-19) BUN 11 (6-20) mg/dL Creatinine 0.6 (0.5-0.9) mg/dL GFR Calculation 121.8 (90-130) mL/min Glucose 86 (65-115) mg/dL Calculated Osmolal ity 289 (285-295) mOsm/k g Lactic Acid 1.0 (0.5-2.2) mmol/L Calcium 9.3 (8.5-10.5) mg/dL Total Bilirubin 0.5 (0.15-1.2) mg/dL AST 24 (0-32) U/L ALT 22 (0-33) U/L Alkaline Phosphata se 101 (35-105) IU/L Total Protein 7.8 (6.6-8.7) g/dL Albumin 4.2 (3.5-5.2) g/dL Globulin 3.6 (1.3-4.6) g/dL Lipase 17 (13-60) U/L Discharge Plan Discharge Patient Disposition: Placed in Observation Clinical Impression: Surgical wound infection Condition: Stable Prescriptions: No Action mupirocin 2 % ointment 1 applic topical BID RF: 0 famotidine 20 mg tablet 20 mg PO DAILY RF: 0 topiramate 50 mg cap,sprinkle,ER 24hr dose pack 50 mg PO DAILY RF: 0 cephalexin 500 mg capsule 500 mg PO BID 10 Days Qty: 20 RF: 0 cetirizine [Zyrtec] 10 mg tablet 10 mg PO DAILY 30 Days Qty: 30 RF: 2 fluticasone propionate [Flonase Allergy Relief] 50 mcg/actuation spray,suspension 2 spray intranasal DAILY 30 Days Qty: 9.9 RF: 2 duloxetine [Cymbalta] 30 mg capsule,delayed release(DR/EC) 30 mg PO BID 30 Days Qty: 60 RF: 0 cholecalciferol (vitamin D3) 1,250 mcg (50,000 unit) capsule 50,000 unit PO .weekly 30 Days Qty: 4 RF: 2 levothyroxine 25 mcg capsule 25 mcg PO DAILY 30 Days Qty: 30 RF: 2 norethindrone acetate [Aygestin] 5 mg tablet 5 mg PO DAILY Qty: 30 RF: 6 spironolactone 100 mg tablet 100 mg PO DAILY Qty: 30 RF: 6 metoprolol tartrate 50 mg tablet 50 mg PO .COMPLEX Qty: 75 RF: 6 cyanocobalamin (vitamin B-12) [Vitamin B-12] 1,000 mcg Tablet 1,000 mcg PO DAILY RF: 0 cbeiawvepz-qjteeuydofqmu-wsow 50-325-40 mg tablet 2 tab PO Q4H PRN (Reason: Headache) RF: 0 gabapentin 100 mg capsule 100 mg PO TID RF: 0 dicyclomine 10 mg capsule 10 mg PO QID PRN (Reason: Cramps) RF: 0 Adult Multivitamin Gummies 200 mcg Tablet,Chewable 400 mcg PO DAILY RF: 0 hydrocodone-acetaminophen 5-325 mg tablet 1 tab PO Q6H PRN (Reason: pain) Qty: 20 RF: 0 Zofran 4 mg tablet 4 mg PO Q6H PRN (Reason: nausea and vomiting) Qty: 20 RF: 0 Colace 100 mg capsule 100 mg PO BID Qty: 30 RF: 0 Referrals: Nina Garcia FNP-C [Primary Care Provider] - Coding Level of Care Code ED Mail Deliverer for Chg Fwd Exam Comprehensive
[2020-10-14] MEDS: sodium chloride 0.9% 1,000 ML 999 ML IV (21:55)
[2020-10-14] MEDS: acetaminophen 325 mg Tablet 650 MG PO (21:55)
[2020-10-14 22:00] VITALS: BP 110/70; PULSE 112; RESP 18; TEMP 37.2; O2SAT 99
[2020-10-15] VITALS (7 sets, daily range): BP systolic 101–122; BP diastolic 64–82; PULSE 80–100; RESP 18–20; TEMP 36.5–37.2; O2SAT 96–99
[2020-10-15] MEDS: sodium chloride 0.9% 1,000 ML 100 ML IV (00:56)
[2020-10-15 02:19] LABS: Add Urine Microscopic? YES; Bilirubin Urine Neg (Negative); Blood Urine 2+ (Negative); Glucose Urine UA Norm (Normal); HCG Qualitative Urine. Negative (Negative); Ketones Urine 2+ (Negative); Leukocyte Esterase Urine 1+ (Negative); Nitrate Urine Negative (Negative); Protein Urine Neg (Negative); RBC Urine 0-4 /hpf (0-2); Specific Gravity, Urine 1.025 (1.005-1.030); Urine Appearance SL Hazy (CLEAR); Urine Color Yellow (Yellow); Urobilinogen Urine Norm (Negative); pH Urine 5 (5-7)
[2020-10-15 02:20] LABS: Add Urine Culture? No; Bacteria Urine 2+ /hpf; Mucus Urine 1+ /hpf; Squamous Epithelial Cell Urine 15-25 /hpf (0-5)
[2020-10-15 06:54] LABS: Basophils % 0.8 %; Eosinophils # 0.1 10^3/uL (0.0-0.8); Eosinophils % 2.7 %; Lymphocytes # 2.1 10^3/uL (0.8-4.8); Lymphocytes % 42.8 %; Mean Corpuscular HGB Conc 31.4 g/dL (30.0-36.0); Mean Corpuscular Hemoglobin 28.6 pg (28.0-34.0); Mean Corpuscular Volume 90.9 fL (81-99); Mean Platelet Volume 8.5 fL (7.4-10.4); Monocytes # 0.6 10^3/uL (0.2-0.9); Monocytes % 12.5 %; Neutrophils # 1.99 10^3/uL (1.8-7.7); Neutrophils % 40.8 %; Nucleated Red Blood Cells % 0 %; Platelet Count 240 10^3/cmm (130-400); Red Blood Count 3.85 10^6/uL (4.1-5.3); Red Cell Distribution Width 11.7 % (12.1-15.1); White Blood Count 4.9 10^3/uL (4.0-10.0)
[2020-10-15 07:25] LABS: Alanine Aminotransferase 27 U/L (0-33); Albumin Level 3.6 g/dL (3.5-5.2); Alkaline Phosphatase 82 IU/L (35-105); Anion Gap 13.9 (5-19); Aspartate Amino Transferase 34 U/L (0-32); Blood Urea Nitrogen 14 mg/dL (6-20); Calcium 8.4 mg/dL (8.5-10.5); Carbon Dioxide 26 mmol/L (22-29); Chloride 103 mmol/L (98-107); Globulin 2.6 g/dL (1.3-4.6); Glomerular Filtration Rate 150.3 mL/min (90-130); Glucose 80 mg/dL (65-115); Osmolality Calculated 287 mOsm/kg (285-295); Potassium 3.9 mmol/L (3.5-5.1); Sodium 139 mmol/L (136-145); Total Bilirubin 0.5 mg/dL (0.15-1.2); Total Protein 6.2 g/dL (6.6-8.7)
--- NOTE | 2020-10-15 07:40 | PM.HP ---
Providers/Chief Complaint Admitting Physician: Odell Soria MD Primary Care Provider: Nina Garcia, MARCO-C Chief Complaint: N/V, Fatigue, fever, surgery on tail bone the 30 History of Present Illness Gutierrez Rocha is a 24 year old female who underwent a pilonidal cystectomy procedure about [address] Tran. She saw him in the office about a week ago and was concerned that she may be getting an infection because she was having some drainage from the area. He told her he did not think she had an infection but then erica put her on some type of antibiotic, anyway. She says over the past week she has been having some fevers, nausea, vomiting, leg pain and neck pain. She has been having some leg pain, arm pain, and neck pain for over a year, however, and sees a neurologist in [place] for this. They apparently are still trying to figure out what is going on. The patient came to the emergency room last night and the emergency room physician wanted her to come in to have her evaluated to see if she needed irrigation of her wound, etc. Dr. Tran is reportedly out of town and so I was contacted. She says she already feels better this morning. Review of Systems General: Reports: 10 or more systems reviewed and unremarkable except in HPI and below Const: Reports: fever(s) Resp: Denies: productive cough or non-productive cough GI: Reports: other (long history of bowel problems ) : Denies: dysuria Musc: Reports: neck pain and extremity pain Skin/Breast: Reports: surgical incision (Not very painful but draining some fluid) Medications/Allergies Home Medications Medication Instructions Recorded Confirmed Last Taken Type Adult Multivitamin Gummies 400 mcg PO DAILY 12/25/19 10/15/20 10/14/20 History lgwsjxqnwo-sbtthvsduabgb-eqja 2 tab PO Q4H PRN 12/25/19 10/15/20 10/14/20 History cyanocobalamin (vitamin B-12) 1,000 mcg PO DAILY 12/25/19 10/15/20 10/14/20 History [Vitamin B-12] dicyclomine 10 mg PO QID PRN 12/25/19 10/15/20 10/14/20 History gabapentin 100 mg PO TID 12/25/19 10/15/20 10/14/20 History norethindrone acetate 5 mg tablet 5 mg PO DAILY #30 tab 01/15/20 10/15/20 10/14/20 Rx cetirizine 10 mg tablet 10 mg PO DAILY 30 Days #30 tab 04/17/20 10/15/20 1 Day Ago Rx ~10/14/20 fluticasone propionate 50 2 spray INTRANASAL DAILY 30 Days 04/17/20 10/15/20 10/14/20 Rx mcg/actuation nasal #9.9 ml spray,suspension spironolactone 100 mg tablet 100 mg PO DAILY #30 tab 05/30/20 10/15/20 10/14/20 Rx duloxetine 30 mg capsule,delayed 30 mg PO BID 30 Days #60 cap 07/08/20 10/15/20 10/14/20 Rx release cholecalciferol (vitamin D3) 1,250 50,000 unit PO .weekly 30 Days #4 07/10/20 10/15/20 1 Day Ago Rx mcg (50,000 unit) capsule cap ~10/14/20 levothyroxine 25 mcg capsule 25 mcg PO DAILY 30 Days #30 cap 07/10/20 10/15/20 10/14/20 06:00 Rx metoprolol tartrate 50 mg tablet 50 mg PO .COMPLEX #75 tab 09/19/20 10/15/20 10/14/20 21:00 Rx docusate sodium [Colace] 100 mg PO BID #30 cap 09/25/20 10/15/20 1 Day Ago Rx ~10/14/20 hydrocodone-acetaminophen 1 tab PO Q6H PRN #20 tab 09/25/20 10/15/20 10/14/20 Rx ondansetron HCl [Zofran] 4 mg PO Q6H PRN #20 tab 09/25/20 10/15/20 10/14/20 Rx cephalexin 500 mg capsule 500 mg PO BID 10 Days #20 cap 10/08/20 10/15/20 Unknown Rx famotidine 20 mg tablet 20 mg PO DAILY 10/08/20 10/15/20 10/14/20 History mupirocin 2 % topical ointment 1 applic TOPICAL BID 10/08/20 10/15/20 10/14/20 History topiramate 50 mg capsule 50 mg PO DAILY 07/10/15/20 10/14/20 History sprinkle,extended release 24 hr Allergies Allergy/AdvReac Type Severity Reaction Status Date / Time No Known Allergies Allergy Verified 10/08/20 08:16 PFSH Acute PFSH: Medical History (Updated 10/15/20 @ 07:18 by Odell Soria MD) Bowel dysfunction Teenage years--longstanding history of bowel related abnormalities and [facility]. Chronic migraine Longstanding history of chronic migraines and is on medication Hypothyroidism Diagnosed in 2020--managed by her primary care provider. Palpitations Diagnosed in 2020 and is on medication managed by her primary care provider. Polycystic ovarian syndrome Seizure-like activity Diagnosed in her 20s--she states that she has seizures without seizure-like activity in her brain and is followed by a neurologist in [facility]-Dr. Jensen Surgical History History of cholecystectomy (09/23/16) 09/23/2016--laparoscopic by Dr. Tran at [facility] History of colonoscopy 2019-for IBS-like symptoms History of excision of pilonidal cyst (09/25/20) 09/25/2020[place] [facility] Family History Father Diabetes Grandmother Diabetes maternal Hypertension maternal Grandfather Diabetes paternal Hypertension maternal Sister Diabetes Hypertension Mother Hypertension Hypercholesteremia Thyroid disease Bleeding disorder Denies family history of Colon cancer Ovarian cancer Breast cancer Anesthesia complication Uterine cancer Stroke Social History Smoking and tobacco status: never smoked Second hand smoke exposure: No Alcohol intake: never Lives independently: Yes Household members: family Housing: House Marital status: Single service: No Current occupational status: unemployed History of recent travel: No Current gender identity: Female Female Reproductive History: Date of last menstrual period: 09/25/19 Para: 0 Spontaneous abortions: No Vitals/I&O/Wt Last Vital Signs Temp 97.7 F 10/15/20 04:00 Pulse 80 10/15/20 04:00 Resp 20 H 10/15/20 04:00 BP 101/68 10/15/20 04:00 Pulse Ox 97 10/15/20 04:00 10/14/20 10/15/20 10/15/20 22:59 06:59 14:59 Intake Total 1000 / 1050 50 / 1050 Balance 1000 / 1050 50 / 1050 Weight last 48 hrs Weight 163 lb 12.8 oz Physical Exam Narrative: EXAM NARRATIVE: The patient was encountered in her hospital room. She does not appear to be in any distress. The pupils are equal. The chest is clear. The heart is regular. The abdomen is soft. She has a fairly well approximated vertical pilonidal cystectomy wound but upon spreading of the surrounding tissue she has a small gap above and below a skin bridge in the middle of the wound. There is a small amount of watery but somewhat yellow drainage on the overlying dressing. The surrounding skin actually looks very good. The extremities reveal no edema. Neurologically the patient appears to be grossly intact this morning. The wound was packed on either side of the skin bridge with some 1 inch Nu Gauze. The wound only seems to extend a couple of centimeters below the surface. Data : 10/15/20 06:27 10/15/20 06:27 Micro: Microbiology 10/14/20 21:52 Blood Culture - Preliminary Blood SPECIMEN COLLECTED 10/14/20 21:52 Blood Culture - Preliminary Blood SPECIMEN COLLECTED A&P Assessment and plan (1) Surgical wound infection: The wound actually looks better than what I was expecting given the description from the emergency department last night. Wound culture results are still pending. She already has an appointment arranged in Dr. Tran's office for later this week (I believe she is scheduled to see Dr. Hagen). I told the patient that I suspect local wound care alone will end up making this better, but I am certainly not opposed to leaving her on an antibiotic in the interim. She is agreeable. The patient will be discharged with instructions for local wound care (pack wound daily with Nu Gauze; the patient says her mom will be capable of helping with this at home). I will discharge her on some Augmentin while she awaits her appointment Dr. Tran's office in 2 days (wound culture results should hopefully be available by that time if needed). Status: Acute Attestations Medical Necessity Statement*: The patient was placed in observation status last night. Given the fact that it does not appear that she needs to go to the operating room for any specific procedures, plans will be made for her to be discharged today as above. Coding Level of Care Code Acute [facility] [employer] [facility] [employer] for Gatito Bruce Diagnoses Surgical wound infection T81.49XA
== END 2020-10-15 10:55 | disposition home or self-care (01) ==
LOC: ER 10-15 00:33 → MEDSURG 10-15 00:54
PROVIDERS: Family Medicine; Admitting Provider Surgery; Emergency Provider Emergency Medicine; PCP Nurse Practitioner Family; Visit Provider Surgery
DX: T81.49XA Infection following a procedure, other surgical site, initial encounter (principal)
CPT/HCPCS: 36415; 80053; 81001; 81025; 83605; 83690; 85025; 87040; 87070; 87075; 87205; 96365; 96366; 96367; 99285; G0378; J2543; J7030

== ENCOUNTER 2020-10-27 19:59 | Emergency (ER) | payer MEDICAID, SELFPAY ==
[2020-10-27 20:01] VITALS: BMI 24.1
--- NOTE | 2020-10-27 20:26 | XRR_ITS ---
PROCEDURE INFORMATION: Exam: XR Lumbosacral Spine Exam date and time: 10/27/2020 8:26 PM Age: 24 years old Clinical indication: Injury or trauma; Fall; Blunt trauma (contusions or hematomas); Additional info: Fall from standing TECHNIQUE: Imaging protocol: XR of the lumbosacral spine. Views: 2 or 3 views. COMPARISON: CT abdomen pelvis w con* [id number] 01/16/2019 11:44 AM FINDINGS: Bones/joints: Normal. No acute fracture. Normal alignment. XR/XR lumbar spine 2-3V* [id number] IMPRESSION: No acute findings.
--- NOTE | 2020-10-27 20:26 | XRR_ITS ---
PROCEDURE INFORMATION: Exam: XR Cervical Spine Exam date and time: 10/27/2020 8:26 PM Age: 24 years old Clinical indication: Injury or trauma; Fall; Blunt trauma; Additional info: Fall from standing TECHNIQUE: Imaging protocol: XR of the cervical spine. Views: 2 or 3 views. COMPARISON: CR Cervical Spine AP/Lat* [id number] 01/29/2017 10:20 AM FINDINGS: Bones/joints: C7 is partially obscured. The visualized cervical spine demonstrates no fracture. Normal alignment. Soft tissues: Unremarkable. XR/XR cervical spine 3V* [id number] IMPRESSION: C7 is partially obscured. The visualized cervical spine demonstrates no fracture. Normal alignment.
--- NOTE | 2020-10-27 20:27 | W.ED.FALL ---
HPI - Fall General: Chief Complaint: Fall Stated Complaint: generalized weakness/fall Time Seen by Provider: 10/27/20 20:18 History of Present Illness: HPI Narrative: 24-year-old female comes in today with complaints of a syncopal episode. Patient reports that she got up from bed to go the bathroom. Patient walked into the bathroom and believes at that time she must of passed out. Patient woke up and was screaming for help when she found herself next to the toilet. Patient reports some neck and low back pain. Patient has a history of bowel dysfunction, palpitations, PCOS, and hypothyroidism. Patient appears well. Patient appears no acute distress. Patient was brought in by EMS with cervical collar in place. Review of Systems General: Reports: 10 or more systems reviewed and unremarkable except in HPI and below Card: Reports: syncope PFS ED PFSH: Medical History (Updated 10/27/20 @ 23:32 by Vic Mayberry [facility]) Bowel dysfunction Teenage years--longstanding history of bowel related abnormalities and she follows with a internal controls analyst-Dr. Case Watts [place] and is on medication. Chronic migraine Longstanding history of chronic migraines and is on medication Hypothyroidism Diagnosed in 2020--managed by her primary care provider. Palpitations Diagnosed in 2020 and is on medication managed by her primary care provider. 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 Jnesen Surgical History History of cholecystectomy (09/23/16) 09/23/2016--laparoscopic by Dr. Tran at [facility] History of colonoscopy 2019-for IBS-like symptoms History of excision of pilonidal cyst (09/25/20) 09/25/2020-Dr. Tran at [facility] Family History Father Diabetes Grandmother Diabetes maternal Hypertension maternal Grandfather Diabetes paternal Hypertension maternal Sister Diabetes Hypertension Mother Hypertension Hypercholesteremia Thyroid disease Bleeding disorder Denies family history of Colon cancer Ovarian cancer Breast cancer Anesthesia complication Uterine cancer Stroke Social History Smoking and tobacco status: never smoked Second hand smoke exposure: No Alcohol intake: never Lives independently: Yes Household members: family Housing: House Marital status: Single service: No Current occupational status: unemployed History of recent travel: No Current gender identity: Female Female Reproductive History: Date of last menstrual period: 10/26/19 Para: 0 Spontaneous abortions: No Physical Exam Const: COMMON NORMALS: no acute distress and patient oriented x3 GENERAL APPEARANCE: cooperative HENMT: COMMON NORMALS: normocephalic, TM's normal bilaterally and Normal external nose present HEAD & SCALP: normal to inspection and normocephalic NOSE: Normal external nose present TYMPANIC MEMBRANE: TM's normal bilaterally MOUTH: Normal oral and palatal mucosa present THROAT: posterior oropharynx normal Eye: GENERAL EYE: appearance normal, both eyes and all related structures Neck/C-Spine: COMMON NORMALS: full ROM Lymph: LYMPHATIC: no lymphadenopathy noted Chest: COMMONS NORMALS: normal inspection of the chest Resp: COMMON NORMALS: normal respiratory effort EFFORT & INSPECTION: Yes able to speak in complete sentences Cardio: COMMON NORMALS: regular rate and regular rhythm RATE: regular rate RHYTHM: regular rhythm GI: COMMON NORMALS: non-tender : COMMON NORMALS: Yes no CVA tenderness BLADDER/KIDNEY EXAM: Yes no CVA tenderness Back/Pelvis: COMMON NORMALS: no CVA tenderness and thoracic and lumbar spine normal to inspection Extremity: COMMON NORMALS: normal to inspection Neuro: COMMON NORMALS: patient oriented x3 and moves all extremities Psych: COMMON NORMALS: mental status grossly normal and cooperative Skin: COMMON NORMALS: no rashes or lesions noted GENERAL SKIN EXAM: no rashes or lesions noted Course ED course: 2119, patient was in x-ray and had at another episode of lightheadedness and near syncope. Staff was able to set her into a chair without her falling. Patient has recovered and is back to normal at this time. X-ray tech also noted some blood. I examined patient and noted to her cleft of her buttock where she had a pilonidal cyst operated on the wound has dehisced. Vital Signs: Vital signs: Vital Signs Pulse Rate 112 H 10/27/20 23:13 Respiratory Rate 18 10/27/20 23:13 Blood Pressure 109/89 10/27/20 23:13 Pulse Oximetry 98 08/01/21 23:13 MDM - Fall MDM Narrative: Medical decision making narrative: 24-year-old female comes in today after falling in the bathroom. Patient reported getting out of bed and walking to the bathroom and at that time she passed out. On exam patient appears well. Patient is able to roll over in bed without difficulty. Patient has a open surgical wound to the cleft of the buttocks. Vital signs are normal. Differential diagnosis includes vasovagal syncope, COVID-19 UTI, sepsis. Laboratory values noted some mild leukopenia. Metabolic panel was unremarkable. CT of the head was normal. X-rays of the back and cervical spine were normal. Patient complained of back pain. I recommended Tylenol and ibuprofen for her pain. Patient was infused with 2 L of IV fluids for concerns of vasovagal syncope. Patient reported understanding of care plan and need for follow-up or return to the ER. Lab Data: Labs: Lab Results 10/27/20 10/27/20 10/27/20 Range/Units 20:42 21:57 21:57 WBC 3.2 L (4.0-10.0) 10^3/ uL RBC 4.61 (4.1-5.3) 10^6/u L Hgb 13.1 (11.5-15.3) g/dL Hct 40.3 (37.0-47.0) % MCV 87.4 (81-99) fL MCH 28.4 (28.0-34.0) pg MCHC 32.5 (30.0-36.0) g/dL RDW 12.1 (12.1-15.1) % Plt Count 164 (130-400) 10^3/c mm MPV 8.7 (7.4-10.4) fL Neut % (Auto) 60.2 % Lymph % (Auto) 32.6 % Bates % (Auto) 6.3 % Eos % (Auto) 0.0 % Baso % (Auto) 0.3 % Neut # (Auto) 1.90 (1.8-7.7) 10^3/u L Lymph # (Auto) 1.0 (0.8-4.8) 10^3/u L Bates # (Auto) 0.2 (0.2-0.9) 10^3/u L Eos # (Auto) 0.0 (0.0-0.8) 10^3/u L Baso # (Auto) 0.0 (0.0-0.1) 10^3/u L Nucleated RBC % (a uto) 0 % Nucleated RBCs # 0.0 /100WBC Sodium 137 (136-145) mmol/L Potassium 3.4 L (3.5-5.1) mmol/L Chloride 100 (98-107) mmol/L Carbon Dioxide 23 (22-29) mmol/L Anion Gap 17.4 (5-19) BUN 17 (6-20) mg/dL Creatinine 0.8 (0.5-0.9) mg/dL GFR Calculation 87.4 L (90-130) mL/min Glucose 89 (65-115) mg/dL Calculated Osmolal ity 285 (285-295) mOsm/k g Lactic Acid (0.5-2.2) mmol/L Calcium 7.9 L (8.5-10.5) mg/dL Total Bilirubin 0.3 (0.15-1.2) mg/dL AST 22 (0-32) U/L ALT 20 (0-33) U/L Alkaline Phosphata se 82 (35-105) IU/L Troponin T Gen 5 n g/L (0-10) ng/L Total Protein 6.7 (6.6-8.7) g/dL Albumin 4.2 (3.5-5.2) g/dL Globulin 2.5 (1.3-4.6) g/dL HCG, Qual (Negative) Urine Color (Yellow) Urine Appearance (CLEAR) Urine pH (5-7) Ur Specific Gravit y (1.005-1.030) Urine Protein (Negative) Urine Glucose (UA) (Normal) Urine Ketones (Negative) Urine Blood (Negative) Urine Nitrate (Negative) Urine Bilirubin (Negative) Urine Urobilinogen (Negative) mg/dL Ur Leukocyte Marianne ase (Negative) Urine RBC (0-2) /hpf Urine WBC (0-5) /hpf Ur Squamous Epith Cells (0-5) /hpf Amorphous Sediment Urine Bacteria (NONE) /hpf Urine Opiates Scre en (Negative) ng/mL Ur Barbiturates Sc reen (Negative) ng/mL Ur Phencyclidine S crn (Negative) ng/mL Ur Amphetamines Sc reen (Negative) ng/mL U Benzodiazepines Scrn (Negative) ng/mL Urine Cocaine Scre en (Negative) ng/mL U Marijuana (THC) Screen (Negative) ng/mL SARS-CoV-2 Ag (Rap id) Positive H (Negative) 10/27/20 10/27/20 10/27/20 Range/Units 21:57 21:57 21:57 WBC (4.0-10.0) 10^3/ uL RBC (4.1-5.3) 10^6/u L Hgb (11.5-15.3) g/dL Hct (37.0-47.0) % MCV (81-99) fL MCH (28.0-34.0) pg MCHC (30.0-36.0) g/dL RDW (12.1-15.1) % Plt Count (130-400) 10^3/c mm MPV (7.4-10.4) fL Neut % (Auto) % Lymph % (Auto) % Bates % (Auto) % Eos % (Auto) % Baso % (Auto) % Neut # (Auto) (1.8-7.7) 10^3/u L Lymph # (Auto) (0.8-4.8) 10^3/u L Bates # (Auto) (0.2-0.9) 10^3/u L Eos # (Auto) (0.0-0.8) 10^3/u L Baso # (Auto) (0.0-0.1) 10^3/u L Nucleated RBC % (a uto) % Nucleated RBCs # /100WBC Sodium (136-145) mmol/L Potassium (3.5-5.1) mmol/L Chloride (98-107) mmol/L Carbon Dioxide (22-29) mmol/L Anion Gap (5-19) BUN (6-20) mg/dL Creatinine (0.5-0.9) mg/dL GFR Calculation (90-130) mL/min Glucose (65-115) mg/dL Calculated Osmolal ity (285-295) mOsm/k g Lactic Acid 1.0 (0.5-2.2) mmol/L Calcium (8.5-10.5) mg/dL Total Bilirubin (0.15-1.2) mg/dL AST (0-32) U/L ALT (0-33) U/L Alkaline Phosphata se (35-105) IU/L Troponin T Gen 5 n g/L 6 (0-10) ng/L Total Protein (6.6-8.7) g/dL Albumin (3.5-5.2) g/dL Globulin (1.3-4.6) g/dL HCG, Qual Negative (Negative) Urine Color (Yellow) Urine Appearance (CLEAR) Urine pH (5-7) Ur Specific Gravit y (1.005-1.030) Urine Protein (Negative) Urine Glucose (UA) (Normal) Urine Ketones (Negative) Urine Blood (Negative) Urine Nitrate (Negative) Urine Bilirubin (Negative) Urine Urobilinogen (Negative) mg/dL Ur Leukocyte Marianne ase (Negative) Urine RBC (0-2) /hpf Urine WBC (0-5) /hpf Ur Squamous Epith Cells (0-5) /hpf Amorphous Sediment Urine Bacteria (NONE) /hpf Urine Opiates Scre en (Negative) ng/mL Ur Barbiturates Sc reen (Negative) ng/mL Ur Phencyclidine S crn (Negative) ng/mL Ur Amphetamines Sc reen (Negative) ng/mL U Benzodiazepines Scrn (Negative) ng/mL Urine Cocaine Scre en (Negative) ng/mL U Marijuana (THC) Screen (Negative) ng/mL SARS-CoV-2 Ag (Rap id) (Negative) 10/27/20 10/27/20 Range/Units 22:02 22:02 WBC (4.0-10.0) 10^3/ uL RBC (4.1-5.3) 10^6/u L Hgb (11.5-15.3) g/dL Hct (37.0-47.0) % MCV (81-99) fL MCH (28.0-34.0) pg MCHC (30.0-36.0) g/dL RDW (12.1-15.1) % Plt Count (130-400) 10^3/c mm MPV (7.4-10.4) fL Neut % (Auto) % Lymph % (Auto) % Bates % (Auto) % Eos % (Auto) % Baso % (Auto) % Neut # (Auto) (1.8-7.7) 10^3/u L Lymph # (Auto) (0.8-4.8) 10^3/u L Bates # (Auto) (0.2-0.9) 10^3/u L Eos # (Auto) (0.0-0.8) 10^3/u L Baso # (Auto) (0.0-0.1) 10^3/u L Nucleated RBC % (a uto) % Nucleated RBCs # /100WBC Sodium (136-145) mmol/L Potassium (3.5-5.1) mmol/L Chloride (98-107) mmol/L Carbon Dioxide (22-29) mmol/L Anion Gap (5-19) BUN (6-20) mg/dL Creatinine (0.5-0.9) mg/dL GFR Calculation (90-130) mL/min Glucose (65-115) mg/dL Calculated Osmolal ity (285-295) mOsm/k g Lactic Acid (0.5-2.2) mmol/L Calcium (8.5-10.5) mg/dL Total Bilirubin (0.15-1.2) mg/dL AST (0-32) U/L ALT (0-33) U/L Alkaline Phosphata se (35-105) IU/L Troponin T Gen 5 n g/L (0-10) ng/L Total Protein (6.6-8.7) g/dL Albumin (3.5-5.2) g/dL Globulin (1.3-4.6) g/dL HCG, Qual (Negative) Urine Color Yellow (Yellow) Urine Appearance Sl hazy (CLEAR) Urine pH 5 (5-7) Ur Specific Gravit y 1.010 (1.005-1.030) Urine Protein Neg (Negative) Urine Glucose (UA) Norm (Normal) Urine Ketones 2+ H (Negative) Urine Blood 3+ H (Negative) Urine Nitrate Negative (Negative) Urine Bilirubin Neg (Negative) Urine Urobilinogen 1 H (Negative) mg/dL Ur Leukocyte Marianne ase Negative (Negative) Urine RBC 25-40 H (0-2) /hpf Urine WBC 0-4 H (0-5) /hpf Ur Squamous Epith Cells 25-40 H (0-5) /hpf Amorphous Sediment Not Reportable Urine Bacteria 2+ H (NONE) /hpf Urine Opiates Scre en Negative (Negative) ng/mL Ur Barbiturates Sc reen Negative (Negative) ng/mL Ur Phencyclidine S crn Negative (Negative) ng/mL Ur Amphetamines Sc reen Negative (Negative) ng/mL U Benzodiazepines Scrn Negative (Negative) ng/mL Urine Cocaine Scre en Negative (Negative) ng/mL U Marijuana (THC) Screen Negative (Negative) ng/mL SARS-CoV-2 Ag (Rap id) (Negative) Discharge Plan Discharge Patient Disposition: Home Clinical Impression: COVID-19 Dehiscence of external surgical wound Qualifiers: Encounter type: initial encounter Qualified Code(s): T81.31XA - Disruption of external operation (surgical) wound, not elsewhere classified, initial encounter Fall Qualifiers: Encounter type: initial encounter Qualified Code(s): W19.XXXA - Unspecified fall, initial encounter Condition: Stable Prescriptions: No Action mupirocin 2 % ointment 1 applic topical BID RF: 0 famotidine 20 mg tablet 20 mg PO DAILY RF: 0 topiramate 50 mg cap,sprinkle,ER 24hr dose pack 50 mg PO DAILY RF: 0 cephalexin 500 mg capsule 500 mg PO BID 10 Days Qty: 20 RF: 0 cetirizine [Zyrtec] 10 mg tablet 10 mg PO DAILY 30 Days Qty: 30 RF: 2 fluticasone propionate [Flonase Allergy Relief] 50 mcg/actuation spray,suspension 2 spray intranasal DAILY 30 Days Qty: 9.9 RF: 2 duloxetine [Cymbalta] 30 mg capsule,delayed release(DR/EC) 30 mg PO BID 30 Days Qty: 60 RF: 0 cholecalciferol (vitamin D3) 1,250 mcg (50,000 unit) capsule 50,000 unit PO .weekly 30 Days Qty: 4 RF: 2 levothyroxine 25 mcg capsule 25 mcg PO DAILY 30 Days Qty: 30 RF: 2 norethindrone acetate [Aygestin] 5 mg tablet 5 mg PO DAILY Qty: 30 RF: 6 spironolactone 100 mg tablet 100 mg PO DAILY Qty: 30 RF: 6 metoprolol tartrate 50 mg tablet 50 mg PO .COMPLEX Qty: 75 RF: 6 cyanocobalamin (vitamin B-12) [Vitamin B-12] 1,000 mcg Tablet 1,000 mcg PO DAILY RF: 0 uzrokfjuiw-hgcmflgqugohe-dgbi 50-325-40 mg tablet 2 tab PO Q4H PRN (Reason: Headache) RF: 0 gabapentin 100 mg capsule 100 mg PO TID RF: 0 dicyclomine 10 mg capsule 10 mg PO QID PRN (Reason: Cramps) RF: 0 Adult Multivitamin Gummies 200 mcg Tablet,Chewable 400 mcg PO DAILY RF: 0 hydrocodone-acetaminophen 5-325 mg tablet 1 tab PO Q6H PRN (Reason: pain) Qty: 20 RF: 0 ondansetron HCl [Zofran] 4 mg tablet 4 mg PO Q6H PRN (Reason: nausea and vomiting) Qty: 20 RF: 0 docusate sodium [Colace] 100 mg capsule 100 mg PO BID Qty: 30 RF: 0 Augmentin 875-125 mg tablet 1 tab PO BID Qty: 15 RF: 0 Discharge Orders: Discharge ED (Routine); Ordered 10/27/20 Ordered By: Vic Mayberry Referrals: Nina Garcia FNP-C [Primary Care Provider] - Discharge Diet: Usual diet Discharge Activity: Increase activity as tolerated Patient Instructions: Viral Syndrome (ED), Opioid Safety Activity Restrictions/Additional Instructions: Home and rest. Use acetaminophen and ibuprofen for your pain. Use ice or heat for further pain relief. You need to have wound dressed daily using clean dressing pad slightly moistened with saline or water and then covered with a dry gauze. Follow-up with primary care for recheck of wound in 2 to 3 days. You also have been diagnosed with COVID-19. You must drink plenty of fluids to maintain your hydration during this illness. Also you should use acetaminophen and ibuprofen for your aches and pain. Follow-up with primary care for further instructions. Return to the ER for new concerns. Coding Level of Care Code ED Ultrasound Technologist Sonographer for G[facility] Fwana lilia Exam Comprehensive
[2020-10-27 21:20] VITALS: BP 112/94; BP 113/94; BP 133/95; PULSE 106; PULSE 118; PULSE 127
--- NOTE | 2020-10-27 21:41 | CTR_ITS ---
PROCEDURE INFORMATION: Exam: CT Head Without Contrast Exam date and time: 10/27/2020 9:41 PM Age: 24 years old Clinical indication: Syncope and collapse; Patient HX: Syncopal episode; Additional info: Lightheadedness TECHNIQUE: Imaging protocol: Computed tomography of the head without contrast. Radiation optimization: All CT scans at this facility use at least one of these dose optimization techniques: automated exposure control; mA and/or kV adjustment per patient size (includes targeted exams where dose is matched to clinical indication); or iterative reconstruction. COMPARISON: MR head wo con* [id number] 08/08/2019 9:24 AM RADIATION DOSE METRICS: Total DLP (mGy-cm): 799.62 FINDINGS: Brain: No hemorrhage. No significant white matter disease. No edema. Cerebral ventricles: No hydrocephalus Paranasal sinuses: Visualized sinuses are unremarkable. No fluid levels. Mastoid air cells: No significant mastoid effusion. Bones/joints: No acute fracture. Soft tissues: Unremarkable. CT/CT head wo con* [id number] IMPRESSION: No acute intracranial abnormality. Radiation Dose CTDIVOL = (mGy): DLP = 799.62 (mGy-cm)
[2020-10-27 22:07] LABS: Basophils % 0.3 %; Mean Corpuscular Hemoglobin 28.4 pg (28.0-34.0); Mean Platelet Volume 8.7 fL (7.4-10.4); Nucleated Red Blood Cells % 0 %
[2020-10-27 22:10] LABS: Hematocrit 40.3 % (37.0-47.0); Hemoglobin 13.1 g/dL (11.5-15.3); Lymphocytes % 32.6 %; Mean Corpuscular HGB Conc 32.5 g/dL (30.0-36.0); Mean Corpuscular Volume 87.4 fL (81-99); Monocytes # 0.2 10^3/uL (0.2-0.9); Monocytes % 6.3 %; Neutrophils % 60.2 %; Platelet Count 164 10^3/cmm (130-400); Red Blood Count 4.61 10^6/uL (4.1-5.3); Red Cell Distribution Width 12.1 % (12.1-15.1); White Blood Count 3.2 10^3/uL (4.0-10.0)
[2020-10-27 22:17] LABS: HCG, Serum Qual Negative (Negative)
[2020-10-27 22:24] LABS: Troponin T (5th) Once 6 ng/L (0-10)
[2020-10-27 22:28] LABS: Alanine Aminotransferase 20 U/L (0-33); Albumin Level 4.2 g/dL (3.5-5.2); Alkaline Phosphatase 82 IU/L (35-105); Anion Gap 17.4 (5-19); Aspartate Amino Transferase 22 U/L (0-32); Blood Urea Nitrogen 17 mg/dL (6-20); Calcium 7.9 mg/dL (8.5-10.5); Carbon Dioxide 23 mmol/L (22-29); Chloride 100 mmol/L (98-107); Globulin 2.5 g/dL (1.3-4.6); Glomerular Filtration Rate 87.4 mL/min (90-130); Glucose 89 mg/dL (65-115); Osmolality Calculated 285 mOsm/kg (285-295); Potassium 3.4 mmol/L (3.5-5.1); Sodium 137 mmol/L (136-145); Total Bilirubin 0.3 mg/dL (0.15-1.2); Total Protein 6.7 g/dL (6.6-8.7)
[2020-10-27 22:33] LABS: Add Urine Microscopic? YES; Bilirubin Urine Neg (Negative); Blood Urine 3+ (Negative); Glucose Urine UA Norm (Normal); Ketones Urine 2+ (Negative); Leukocyte Esterase Urine Negative (Negative); Nitrate Urine Negative (Negative); Protein Urine Neg (Negative); Urine Appearance SL Hazy (CLEAR); Urine Color Yellow (Yellow); Urobilinogen Urine 1 mg/dL (Negative); pH Urine 5 (5-7)
[2020-10-27 22:35] LABS: Add Urine Culture? No; Bacteria Urine 2+ /hpf; RBC Urine 25-40 /hpf (0-2); Squamous Epithelial Cell Urine 25-40 /hpf (0-5); WBC Urine 0-4 /hpf (0-5)
[2020-10-27 22:42] LABS: Amphetamines Screen Urine Negative (Negative); Barbiturates Screen Urine Negative (Negative); Benzodiazepines Screen Urine Negative (Negative); Cocaine Screen Urine Negative (Negative); Opiate Screen Urine Negative (Negative); PCP Screen Urine Negative (Negative); THC Screen Urine Negative (Negative)
[2020-10-27 22:56] LABS: Slide Review Slide Review Perform
[2020-10-27 23:13] VITALS: BP 109/89; PULSE 112; RESP 18; O2SAT 98
--- NOTE | 2020-10-27 23:16 | PC.NURSE ---
pt requests pain medicine at this time
[2020-10-27 23:25] LABS: SARS Covid-2 Antigen Positive (Negative)
[2020-10-27] MEDS: lactated ringers 1,000 ML 999 ML IV (23:44)
[2020-10-27 23:54] VITALS: BP 138/98; PULSE 112; RESP 19; O2SAT 96
[2020-10-27] MEDS: acetaminophen 500 mg Tablet 1000 MG PO (23:56)
[2020-10-28 01:49] VITALS: BP 134/92; PULSE 108; RESP 18; O2SAT 98
== END 2020-10-28 01:20 | disposition home or self-care (01) ==
PROVIDERS: Emergency Provider Nurse Practitioner Family; PCP Nurse Practitioner Family
DX: U07.1 COVID-19 (principal); T81.31XA Disruption of external operation (surgical) wound, not elsewhere classified, initial encounter; W19.XXXA Unspecified fall, initial encounter; Y92.002 Bathroom of unspecified non-institutional (private) residence as the place of occurrence of the external cause
CPT/HCPCS: 36415; 70450; 72040; 72100; 80053; 80306; 81001; 83605; 84484; 84703; 85025; 87040; 87426; 96360; 99283

== ENCOUNTER → 2020-11-21 09:52 | Outpatient (BNVA) | payer MEDICAID, SELFPAY | PROVIDERS: PCP Nurse Practitioner Family; Visit Provider Nurse Practitioner Family | DX: R53.83 Other fatigue (principal); E03.9 Hypothyroidism, unspecified; Z79.899 Other long term (current) drug therapy | CPT/HCPCS: 82306; 82607; 82728; 82746; 83550; 85025 ==

== ENCOUNTER → 2020-12-04 13:05 | Outpatient (BNVA) | payer MEDICAID, SELFPAY | PROVIDERS: PCP Nurse Practitioner Family; Visit Provider Obstetrics & Gynecology | DX: R10.31 Right lower quadrant pain (principal) | CPT/HCPCS: 76856 ==

== ENCOUNTER → 2021-03-04 10:01 | Outpatient (BNVA) | payer MEDICAID, SELFPAY | PROVIDERS: PCP Nurse Practitioner Family; Visit Provider Nurse Practitioner Family | DX: E03.9 Hypothyroidism, unspecified (principal); E55.9 Vitamin D deficiency, unspecified | CPT/HCPCS: 82306; 84443; 85025 ==

== ENCOUNTER → 2021-03-05 08:38 | Outpatient (BNVA) | payer MEDICAID, SELFPAY | PROVIDERS: PCP Nurse Practitioner Family; Visit Provider Obstetrics & Gynecology | DX: R10.2 Pelvic and perineal pain (principal) | CPT/HCPCS: 76856 ==

== ENCOUNTER → 2021-05-26 11:36 | Outpatient (BNVA) | payer MEDICAID, SELFPAY | PROVIDERS: PCP Nurse Practitioner Family; Visit Provider Nurse Practitioner Family | DX: E55.9 Vitamin D deficiency, unspecified (principal); E03.9 Hypothyroidism, unspecified; M25.50 Pain in unspecified joint; M79.604 Pain in right leg; M79.605 Pain in left leg; R50.9 Fever, unspecified; M25.562 Pain in left knee; M25.561 Pain in right knee | CPT/HCPCS: 80053; 80061; 82306; 84443; 85025; 85651; 86140; 86160; 86162; 86200; 86235; 86255; 86376; 86431 ==

== ENCOUNTER 2021-06-12 13:44 | Outpatient (CLI) | payer MEDICAID, SELFPAY ==
--- NOTE | 2021-06-12 13:53 | XR_ITS ---
WS: [email or web address] XR tibia fibula LT 2V [id number] REASON FOR EXAM: M79.604 - Pain in right leg FINDINGS: No fracture or other focal bony abnormality. No periosteal reaction. No soft tissue abnormality. XR/XR tibia fibula LT 2V [id number] IMPRESSION: No significant abnormality.
--- NOTE | 2021-06-12 13:53 | XR_ITS ---
WS: [email or web address] XR knee LT 3V* [id number] REASON FOR EXAM: M25.50 - Pain in unspecified joint FINDINGS: No fracture or focal bone lesion. Medial and lateral knee joint spaces are intact and well preserved. No subchondral bone abnormality. Patellofemoral joint space is intact and well preserved. No soft tissue abnormality. XR/XR knee LT 3V* [id number] IMPRESSION: No significant abnormality.
--- NOTE | 2021-06-12 13:53 | XR_ITS ---
WS: [email or web address] XR femur LT min 2V* [id number] REASON FOR EXAM: M79.604 - Pain in right leg FINDINGS: No fracture or focal bone lesion. The left femur from the hip to the knee is unremarkable. Joint spaces the left hip is intact and well preserved. No soft tissue abnormality. XR/XR femur LT min 2V* [id number] IMPRESSION: No significant abnormality.
--- NOTE | 2021-06-12 13:53 | XR_ITS ---
WS: [email or web address] XR femur RT min 2V* [id number] REASON FOR EXAM: M79.604 - Pain in right leg FINDINGS: No acute fracture or focal bone abnormality. Right hip joint space is intact and well preserved. The right femur from the hip joint to the knee is unremarkable with the exception of the small bony e xostosis above the medial femoral condyle described in the examination of the right knee. XR/XR femur RT min 2V* [id number] IMPRESSION: Small bony exostosis of the distal right femur, the examination is unremarkable .
--- NOTE | 2021-06-12 13:53 | XR_ITS ---
WS: [email or web address] XR tibia fibula RT 2V [id number] REASON FOR EXAM: M79.604 - Pain in right leg FINDINGS: No fracture or focal bone lesion. No periosteal reaction. No soft tissue abnormality. XR/XR tibia fibula RT 2V [id number] IMPRESSION: No significant abnormality.
--- NOTE | 2021-06-12 13:53 | XR_ITS ---
WS: [email or web address] XR knee RT 3V* [id number] REASON FOR EXAM: M25.50 - Pain in unspecified joint FINDINGS: No acute fracture. Small bony exostosis from the medial metadiaphysis of the femur. Joint spaces of the right knee are intact and well preserved. Patellofemoral joint space is intact and well preserved. No soft tissue abnormality. XR/XR knee RT 3V* [id number] IMPRESSION: Small bony exostosis as above. Examination otherwise unremarkable.
== END 2021-06-12 13:45 | disposition home or self-care (01) ==
PROVIDERS: PCP Nurse Practitioner Family; Visit Provider Nurse Practitioner Family
DX: M79.604 Pain in right leg (principal); M79.605 Pain in left leg; M25.50 Pain in unspecified joint; M25.561 Pain in right knee; M25.562 Pain in left knee; M89.9 Disorder of bone, unspecified
CPT/HCPCS: 73552; 73562; 73590

== ENCOUNTER 2021-10-14 08:33 | Outpatient (CLI) | payer MEDICAID, SELFPAY ==
--- NOTE | 2021-10-14 08:30 | CT_ITS ---
WS: [email or web address] CT ABDOMEN AND PELVIS WITH CONTRAST HISTORY: R10.2 - Pelvic and perineal pain TECHNIQUE: Imaging performed of the abdomen and pelvis with IV contrast. Single phase imaging of the abdomen. Coronal and sagittal reformats are submitted. All CT scans at [facility] use at [facility] [facility] one of these dose optimization techniques: automated exposure control; mA and/or kV adjustment per patient size (includes targeted exams where dose is matched to clinical indication); or iterative re construction. IV CONTRAST: Omnipaque 350; 95 mL IV. Oral contrast: Yes. DLP: 1026.62 mGy.cm COMPARISON: 01/16/2019 Lower thorax: Lung bases are clear. Heart is normal size. Small hiatal hernia. Liver/biliary system: Normal size with no intrahepatic dilatation. Gallbladder: Status post cholecystectomy. Pancreas: Normal size pancreas and pancreatic duct. No adjacent inflammation. Spleen: Normal size spleen. No mass or infarct. Adrenal glands: Normal. Right kidney: Normal. Left kidney: Normal. Aorta: Normal. Lymphadenopathy: None. Free fluid: None. GI tract: Normally distended stomach. No small bowel obstruction. There is mild bowel wall thickening beginning in the cecum through the ascending colon and through the transverse colon. Mild wall thick ening continues in the descending colon. The wall of the colon is slightly irregular in the lumen is narrowed. There is no obstructive pattern. The appendix is normal. Abdominal wall: Fat containing umbilical hernia. Pelvis: Normal size uterus. Mild fluid distention of the uterus may be due to menses. Both ovaries ar e identified and contain small cysts. There is a small amount of physiologic free fluid in the cul-de -sac. Urinary bladder is not distended. No adenopathy. Increased low attenuation and thickening near the cervix, greatest to the RIGHT of midline. This would be better evaluated by a pelvic exam. Bones: Unremarkable. CT/CT abdomen pelvis w con* [id number] IMPRESSION: 1. Small bilateral ovarian follicles and a small amount of physiologic free fl uid in the cul-de-sac. 2. Mild, near diffuse colonic wall thickening and mild luminal narrowing. No o bstruction. Consider underdistention versus infectious or inflammatory colitis. Terminal ileum appears normal. 3. No adenopathy. 4. Prior cholecystectomy. 5. Focal thickening with decreased attenuation near the cervix, greatest to th e RIGHT of midline. This area would be better evaluated by pelvic exam or trans vaginal pelvic ultrasound. Cervicitis or even neoplasm is not excluded.
[2021-10-14] MEDS: iohexol 300 mg/mL 50 mL Btl PO (10:20)
[2021-10-14] MEDS: iohexol 350 mg/mL 100 mL Btl IV (10:32)
== END 2021-10-14 08:34 | disposition home or self-care (01) ==
PROVIDERS: PCP Nurse Practitioner Family; Visit Provider Obstetrics & Gynecology
DX: R10.2 Pelvic and perineal pain (principal)
CPT/HCPCS: 74177

== ENCOUNTER → 2021-10-16 15:10 | Outpatient (BNVA) | payer MEDICAID, SELFPAY | PROVIDERS: PCP Nurse Practitioner Family; Visit Provider Nurse Practitioner Family | DX: E03.9 Hypothyroidism, unspecified (principal); E55.9 Vitamin D deficiency, unspecified | CPT/HCPCS: 82306; 84443 ==

== ENCOUNTER → 2021-10-31 14:12 | Outpatient (BNVA) | payer MEDICAID, SELFPAY | PROVIDERS: PCP Nurse Practitioner Family; Visit Provider Obstetrics & Gynecology | DX: E28.2 Polycystic ovarian syndrome (principal) | CPT/HCPCS: 76856 ==

== ENCOUNTER → 2022-11-09 14:33 | Outpatient (BNVA) | payer MEDICAID, SELFPAY | PROVIDERS: PCP Nurse Practitioner Family; Visit Provider Nurse Practitioner Family | DX: E03.9 Hypothyroidism, unspecified (principal); R76.8 Other specified abnormal immunological findings in serum; R79.89 Other specified abnormal findings of blood chemistry; E55.9 Vitamin D deficiency, unspecified | CPT/HCPCS: 80053; 82306; 84443; 85025; 85651; 86140; 86160; 86162; 86235; 86255; 86376 ==